=== PATIENT | female | born 1985 | race Caucasian/White ===

== ENCOUNTER 2022-04-05 08:16 | Outpatient (CLI) | payer OTHER, SELFPAY ==
[2022-04-05 17:24] LABS: Amphetamine Screen Urine Negative (Negative); Barbiturate Screen Urine Negative (Negative); Benzodiazepines Screen Urine Negative (Negative); Cocaine Screen Urine Negative (Negative); Methadone Screen Urine Negative (Negative); Methamphetamines Screen Urine Negative (Negative); Opiate Screen Urine Negative (Negative); Oxycodone Screen Urine Negative (Negative); Phencyclidine Screen Urine Negative (Negative); Tricyclic Antidepressant Urine Negative (Negative)
[2022-04-05 18:26] LABS: Cannabinoid Screen Urine POSITIVE (Negative)
[2022-04-08 02:21] LABS: Rapid Plasma Reagin (RPR) Non Reactive (Non Reactive)
== END 2022-04-05 08:17 | disposition home or self-care (01) ==
LOC: NFLDREF 13:57
PROVIDERS: PCP Family Medicine; Visit Provider Advanced Practice Midwife
DX: Z34.93 Encounter for supervision of normal pregnancy, unspecified, third trimester (principal); Z3A.30 30 weeks gestation of pregnancy
CPT/HCPCS: 80306; 86592

== ENCOUNTER 2022-04-05 14:59 | Outpatient (CLI) | payer OTHER, SELFPAY ==
--- NOTE | 2022-04-05 15:00 | CRLHL7_ITS ---
For Patients: As a result of the Cures Act, medical imaging exams and procedure reports are released immediately into your electronic medical record. You may view this report before your referring provider. If you have questions, please contact your health care provider. INDICATION: Third trimester scan, evaluate growth. COMPARISON: 01/22/2022 TECHNIQUE: Real time zamora scale imaging of the fetus was performed as well as color Doppler and spectral Doppler analysis of the umbilical artery. FINDINGS: Sonographic imaging demonstrates a single living intrauterine gestation. Fetus demonstrates a regular cardiac rate of 135 beats per minute. Fetus has a vertex position. The placenta lies anteriorly without evidence of placenta previa. Amniotic fluid volume appears normal and there is a single deepest vertical pocket: 5.2 cm. The estimated weight is 1572gm which lies at the 37th %. On the prior OB ultrasound exam dated 01/22/2022 the estimated weight was at the 38th%. BPD 46th percentile. HC 14th percentile. AC 67th percentile. FL 10th percentile. The HC/AC ratio measures 1.03 range (0.97-1.18). There is adequate diastolic blood flow within the umbilical artery. The S/D ratio measures 3.8. IMPRESSION: Sonographic gestational age 30 weeks 3 days and sonographic due date of 06/11/2022. Good correlation with dates. Normal interval growth. Estimated weight 37th percentile. Abdominal circumference 67th percentile. Dictated by Trevor Lu MD @ 04/06/2022 12:31:40 PM (Electronically Signed)
== END 2022-04-05 15:00 | disposition home or self-care (01) ==
LOC: US 14:59
PROVIDERS: PCP Family Medicine; Visit Provider Advanced Practice Midwife
DX: Z34.93 Encounter for supervision of normal pregnancy, unspecified, third trimester (principal); Z3A.30 30 weeks gestation of pregnancy
CPT/HCPCS: 76816; 76820

== ENCOUNTER 2022-05-18 16:22 | Outpatient (CLI) | payer OTHER, SELFPAY ==
[2022-05-19 14:53] LABS: Strep B DNA Probe NEGATIVE (Negative)
[2022-05-20 11:30] LABS: Strep B Pen/Amox Allergy No
== END 2022-05-18 16:23 | disposition home or self-care (01) ==
LOC: NFLDREF 16:22
PROVIDERS: PCP Family Medicine; Visit Provider Advanced Practice Midwife
DX: Z34.93 Encounter for supervision of normal pregnancy, unspecified, third trimester (principal); Z3A.36 36 weeks gestation of pregnancy
CPT/HCPCS: 87081; 87653

== ENCOUNTER 2022-05-27 08:07 | Outpatient (CLI) | payer OTHER, SELFPAY ==
--- NOTE | 2022-05-27 08:15 | CRLHL7_ITS ---
For Patients: As a result of the Century Cures Act, medical imaging exams and procedure reports are released immediately into your electronic medical record. You may view this report before your referring provider. If you have questions, please contact your health care provider. INDICATION: HX IUGR TECHNIQUE: Real time zamora scale imaging of the fetus was performed as well as color Doppler and spectral Doppler analysis of the umbilical artery. COMPARISON: 04/05/2022 FINDINGS: Sonographic imaging demonstrates a single living intrauterine gestation. Fetus demonstrates a regular cardiac rate of 163 beats per minute. Fetus has a vertex position. The placenta lies anteriorly. Amniotic fluid volume appears lower limits of normal and there is a single deepest pocket of 3.9 cm. GERARD 8.5 cm. The estimated weight is 2767gm which lies at the 14th %. On the prior OB ultrasound dated 04/05/2022 the estimated weight was at the 37th percentile. There is adequate diastolic blood flow within the umbilical artery. The S/D ratio measures 2.6. BPD 48th percentile. HC 5th percentile. Abdominal circumference 8th percentile. FL 11th percentile. The fetus was active. Absent breathing movements. There was normal flexion and extension of the trunk and extremities. IMPRESSION: Biophysical profile 08/26. Sonographic gestational age 36 weeks 1 day and sonographic due date of 06/23/2022. Sonographic age 12 days behind the clinical age. Estimated weight 14th percentile. Abdominal circumference 8th percentile. Head circumference 5th percentile. Normal UA Doppler. Dictated by Trevor Lu MD @ 05/27/2022 10:05:42 AM (Electronically Signed)
== END 2022-05-27 08:08 | disposition home or self-care (01) ==
PROVIDERS: PCP Family Medicine; Visit Provider Advanced Practice Midwife
DX: Z34.93 Encounter for supervision of normal pregnancy, unspecified, third trimester (principal); Z87.59 Personal history of other complications of pregnancy, childbirth and the puerperium; Z3A.36 36 weeks gestation of pregnancy
CPT/HCPCS: 76816; 76819; 76820

== ENCOUNTER 2022-05-31 06:47 | Inpatient (IN) | payer OTHER, SELFPAY ==
[2022-05-31] VITALS (33 sets, daily range): BP systolic 121–191; BP diastolic 60–93; PULSE 56–76; RESP 16–18; TEMP 36.6–37.1; O2SAT 98–100; BMI 32.9
--- NOTE | 2022-05-31 07:46 | W.PM.LDBA ---
Subjective History of Present Illness Date Seen: 05/31/22 Narrative: Patient is being admitted to Labor and Delivery for induction for IUGR. She is a 36 year old at 38.3 weeks gestation. Her full history and physical was done 05/27/22 by Marc Anne CNM. Please see this for details. Transferred care at 27.4 weeks 1. Blood Type A Rh negative 28 weeks Rhogam: received 03/16 Rhogam pp 2. THC use for insomnia and PTSD. 04/05/2021: THC positive 3. Smoker-actively working on cutting back. Encouraged Vit C. 4. Hx IOL for IUGR with a vacuum. EFW 37% at 30 weeks 5. Hx. mild PreE in in 2020. 6. HPV in 2019. Negative in 2019 and 2021. 7. IUGR at 37.6 weeks. EFW 14%, 6 lb 2 oz. AC 7.5%. -IOL between 38-39 weeks. Scheduled 05/31 per pt request. OB - Problem Based A/P Additional Plan (1) Encounter for induction of labor: Status: Acute (2) IUGR (intrauterine growth restriction): Status: Acute (3) 38 weeks gestation of : Status: Acute (4) Rh negative status during : Status: Acute Plan at 38.2 weeks gestation? GBS negative? IUGR? IOL? ?? PLAN:? 1. Reviewed risks and benefits of IOL with pitocin vs cytotec. Pt prefers cytotec. Pitocin to follow if needed.? 2. Candidate for analgesia of choice. Planning unmedicated .?? 3. Anticipate ? 4.. Expectant management at this time.? 5. Continuous monitoring for IUGR 6. IV PRN, not required right now. Consider placement if she is considering an epidural. Delivery/Labor/Induction Plan Plan: induction Induction method: per misoprostol protocol OB Result Labs Labs: OB transfer Labs:??? Blood type: A-, antibody screen negative.??? Hgb (10/15/21): 13.0??? Platelets (10/15/21): 230??? Rubella: Immune??? RPR: non-reactive??? HBsAg: negative?? Hep C: negative? HIV: negative??? GC/Chlamydia: negative/negative??? Pap (8/30/22): negative??? Genetic screening: none? IMAGING:??? 1st trimester: 10.5 weeks, FHR 163??? Anatomy scan: 01/24-FHR 149, anterior placenta, SDP 4.0 cord S/D 3.5, EFW 38%, facial structures and posterior fossa not well visualized, normal otherwise. 01/27-FHR 146, SDP 6.1, facial and brain structures visualized and normal, cord S/D 5.7 (up from 3.5)-follow up recommended ??? Labs Blood Type: A (-) negative Rubella: immune RPR/VDLR: nonreactive GBS Status: negative HBsAG: negative OB Exam Physical Exam Vital signs: Temp Pulse Resp BP Pulse Ox 98.7 F 67 18 136/72 98 05/31/22 07:05/31/22 07:23 05/31/22 07:05/31/22 07:05/31/22 07:24 Detailed Labor and Delivery Exam Patient Gravid: Yes Dilation (cm): 1 Effacement (%): 70 Cervix position: posterior Consistency: medium Contraction Frequency: irritability Fetus (Single) Station: 0 Amniotic Membrane Status: intact Heart Rate Baseline: 135 Monitor Accelerations: Present Monitor Decelerations: None Bench Press Operator Variability: Moderate (6-25)
[2022-05-31] MEDS: miSOPROStoL 25 MCG/0.25 TABLET VAGINAL ×2 (08:05→11:00)
[2022-05-31 08:06] LABS: Amphetamine Screen Urine Negative (Negative); Barbiturate Screen Urine Negative (Negative); Benzodiazepines Screen Urine Negative (Negative); Cocaine Screen Urine Negative (Negative); Methadone Screen Urine Negative (Negative); Methamphetamines Screen Urine Negative (Negative); Opiate Screen Urine Negative (Negative); Oxycodone Screen Urine Negative (Negative); Phencyclidine Screen Urine Negative (Negative); Tricyclic Antidepressant Urine Negative (Negative)
[2022-05-31 08:15] LABS: Cannabinoid Screen Urine POSITIVE (Negative)
[2022-05-31 08:33] LABS: SARS PCR* Negative SARS-CoV-2 (Negative)
[2022-05-31 08:40] LABS: Basophils Percent Auto 0.1 % (0.0-3.0); Eosinophils Percent Auto 0.8 % (0.0-7.0); Hematocrit 34.7 % (33.0-51.0); Hemoglobin* 11.7 gm/dL (12.0-16.0); Immature Granulocytes Pct Auto 1.2 %; Lymphocytes Percent Auto 18.2 % (20-44); Mean Corpuscular HGB Conc 34 gm/dL (32-36); Mean Corpuscular Hemoglobin 29 pg (26-34); Mean Corpuscular Volume 87 fL (80-100); Monocytes Percent Auto 4.9 % (0.0-11.0); Neutrophils Percent Auto 74.8 % (42.0-72.0); Platelet Count* 192 K/uL (140-440); RDW Coefficient of Variation % 12.4 % (11.5-15.5); Red Blood Count 4.01 m/uL (4.00-5.20); White Blood Count* 11.51 K/uL (4.50-11.00)
[2022-05-31 08:44] LABS: Slide Review Reflex No
--- NOTE | 2022-05-31 14:32 | P.OBPN_ITS ---
Subjective Date Seen: 05/31/22 Narrative: Maryam is resting comfortably in bed, sitting up eating. Does not have a support person at this time but expects one around 1500. Denies feeling contractions with the exception of one contraction since the start of Cytotec induction. Last exam was 3 cm, 90% and 0 station per RN. Discussed plan of care going forward and recommended with her history of fast labor, that we start Pitocin 4 hours from the last dose of Cytotec. Patient agrees to the plan. Objective Vital Signs: Last Vital Signs Temp 98.1 F 05/31/22 10:52 Pulse 71 05/31/22 10:52 Resp 18 05/31/22 10:52 BP 130/60 05/31/22 10:52 Pulse Ox 98 05/31/22 07:24 Pelvic Exam Dilation (cm): 3 Effacement (%): 90 Station: 0 Contractions Monitor mode: External Contraction Frequency: 2-4 Contraction pattern: Irregular Contraction intensity: Mild Assessment Assessment: induction ongoing Station: 0 Status: Category ll Heart Rate Baseline: 125 Detention Variability: Moderate (6-25) Monitor Accelerations: Present Monitor Decelerations: None Plan Plan: PLAN:? 1. Routine intrapartum cares as ordered. Start Pitocin when 4 hours have elapsed since last Cytotec dose. 2. Monitoring per policy, continuous 3. Patient is a candidate for analgesia of choice. May have when desires. 4. Patient encouraged to reposition to promote physiologic labor and .?Attempt positions to encourage rotation. 5. Anticipate . 6. Place IV for pitocin administration. AIMEE Still with supervision of Oneida Camarillo CNM
[2022-05-31] MEDS: OXYTOCIN 30 unit/500 ML in NS 30 UNIT/500 ML BAG IVPB (15:05)
[2022-05-31] MEDS: LACTATED RINGERS 1000 ML 1,000 ML 125 ML IV (15:05)
[2022-05-31] MEDS: ROPIVACAINE 0.2% 100 ml 100 ML 12 MG EPIDURAL (19:20)
[2022-05-31] MEDS: CALCIUM CARBONATE 500 MG CHEW PO (19:49)
[2022-05-31] MEDS: ONDANSETRON 2 MG/ML inj 4 MG IV (19:54)
[2022-05-31] MEDS: LABETALOL HCL 5 MG/ML inj IVP ×2 (19:59→20:57)
[2022-05-31 20:11] LABS: Hematocrit 39.4 % (33.0-51.0); Hemoglobin* 13.2 gm/dL (12.0-16.0); Mean Corpuscular HGB Conc 34 gm/dL (32-36); Mean Corpuscular Hemoglobin 29 pg (26-34); Mean Corpuscular Volume 87 fL (80-100); Platelet Count* 207 K/uL (140-440); Red Blood Count 4.53 m/uL (4.00-5.20); Slide Review Reflex No; White Blood Count* 17.13 K/uL (4.50-11.00)
[2022-05-31 20:31] LABS: Alanine Aminotransferase* 22 U/L (4-35); Aspartate Amino Transferase* 27 U/L (12-35); Blood Urea Nitrogen* 14 mg/dL (5-24); Creatinine* 0.9 mg/dL (0.5-1.5); Est. Creatinine Clearance* 79.25; Estimated Glomerular Filt Rate 86 ml/min
[2022-05-31 20:33] LABS: Fibrinogen* 460 mg/dL (200-450); Prothrombin Time 12.7 Seconds
--- NOTE | 2022-05-31 21:25 | W.PM.OBVAGDE ---
OB Procedure Vag Delivery Mother Details Mother Details: Maryam is a 36 year-old, 4, now Para 2, admitted on 05/31/22 at 38.4 Days gestation for induction for IUGR.? Cervical exam on admission was 1 cm/30 % effaced with membranes intact in vertex presentation. heart rate demonstrated baseline 135 bpm with moderate variability, + accelerations, - decelerations; a category 1 tracing.?She received cytotec x2 followed by pitocin for her IOL. SROM occurred at 1935 with clear fluid.?She received an epidural for pain control and then progressed rapidly to complete. Just prior to delivery she developed elevated blood pressures in the severe range. She was treated with IV medication and started on Magnesium for prevention of seizures. Labs pending. Placenta was irregularly shaped and had a marginal cord insertion with calcifications noted. It was sent to pathology. : 4 Para: 2 Weeks Gestation: 38.3 Admission Date: 05/31/22 Additional Details Amniotic Membrane Status: SROM Amniotic Membrane Rupture Date: 05/31/22 Amniotic Membrane Rupture Time: 19:35 Amniotic Membrane Fluid Description: Clear Analgesia/Anesthesia Type: Epidural Waterbirth: No Pitcoin: Yes Intrapartal Events: Labor Induction Induction Method: per misoprostol protocol and per pitocin protocol Labor Onset: 18:04 Complete: 20:07 Pushin:11 Heart: heart tones during second stage were 130's moderate variability with variable decelerations. Delivery Details Delivery Date: 05/31/22 Delivery Time: 20:34 Route of delivery: Infant Gender: Male Viability: Alive; Heart Rate Present Position at Delivery: OA Delivery Details: Delivered via spontaneous vaginal delivery. Infant was placed on maternal abdomen.? Cord was clamped and cut after a 5 minute delay. Nose and mouth were bulb suctioned.? weight pending. 1 Minute Interval Total Score: 8 5 Minute Interval Total Score: 9 Additional Details Shoulder Dystocia: No Placenta Delivery Time: 20:56 Placental Delivery Description: Spontaneous Procedure Done: Global Blood Loss: 150 Laceration: Perineal - 1st Degree (not repaired) Episiotomy Description: None Blood Loss Measurement Type: QBL Bakri Used: No Sponge/Need Count Correct: Yes Cord Vessel Description: 3 Vessels Event Summary Status: Mother and infant were stable after delivery. Disposition: floor
--- NOTE | 2022-05-31 21:34 | PM.OBCN1 ---
OB - CN: HPI Date of Consult Time Seen by Provider: 21:34 Date Seen: 05/31/22 Consult date: 05/31/22 Requesting Physician: Oneida Camarillo CNM Primary Care Provider: Eliza Cho MD Consult Narrative Narrative: Maryam is a 36 year old G 4 P 1021 now 2 at 38w3d weeks gestation that was admitted to the [facility] on 05/31/22 for induction of labor due to IUGR. She developed hypertension intrapartum and severe preeclampsia range blood pressure in the active phase of labor. She is currently on magnesium for seizure prophylaxis. She has received IV labetalol to control blood pressure. I will be starting nifedipine ER 30 mg p.o. daily this evening. Will increase this dose and add p.o. labetalol needed. Has received IV labetalol. Another set of preeclampsia labs as ordered for tomorrow morning. Labs on 05/31/2022 at approximately 8:00 p.m.: Hemoglobin 13.2, platelets 207, INR 0.9, fibrinogen 460 (H: normal for ), AST 27, ALT 22, BUN 14, creatinine 0.9 (high for ). History History 4 Elective abortions 2 Para 1 Spontaneous abortions Hx # Term Pregnancies Ectopic pregnancies Hx # Pregnancies Multiple births Number of Living Children 1 Past Pregnancies Del. Date GA/Weeks Outcome Route wt Inf Gender Labor Lgth Anesthesia Location Provider Compli 10/04/19 38 live - full term vaginal delivery 4 lb 14 oz Female 4 hrs none Bernie Delivery Date: 10/04/19 Last Updated by: Oneida Camarillo CNM placenta had calcium deposits in it; ?IUGR Labs Blood type: A (-) negative Rubella: immune RPR/VDLR: nonreactive GBS status: negative HBsAG: negative OB Labs: Lab Assessment Start: 05/31/22 07:11 Freq: ONCE Status: Complete Protocol: PC.OBGBS Activity Type Activity Date Activity User E-sign Co-sign Detail Recorded Client Recorded Date Recorded By Document 05/31/22 07:55 GOAquiles [id number] 05/31/22 07:56 AMINA 05/31/22 07:55 Lab Assessment GBS Negative Previous with Invasive GBS No Does Patient Meet Criteria No No Treatment Needed OK Maternal Blood Type A Maternal RH Factor Negative Evaluate Maternal Rubella Immune Status Immune Hepatitis B Surface Antigen Negative Maternal HIV Status Negative Maternal Syphillis (RPR) Status Negative Are Labs Available Yes [facility] Medical History (Updated 05/31/22 @ 21:59 by Ese Perez MD) ASCUS (atypical squamous cells of undetermined significance) on gynecologic Papanicolaou smear complicating , antepartum History of pre-eclampsia History of prior with IUGR Severe preeclampsia Surgical History (Updated 03/18/22 @ 13:09 by Onedia Camarillo CNM) History of nasal surgery History of placement of ear tubes History of vacuum extraction assisted delivery Social History (Updated 05/27/22 @ 17:52 by Rae Anne CNM) Narrative: SOCIAL??? Education: 2 year degree??? 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 Partner: James - receptionist airline lounge at a [employer] Lives with: partner, daughter?? Pets: dog Abuse: Denies past/present? Special Diet: Denies??? Ok with a blood transfusion: yes?? Culture or buddhist beliefs: denies? RISK FACTORS??? Exercise Times/wk: walking 3-4 days per week?? Depression/Anxiety: denies??? Seat Belt Use: Routinely Smoking: smokes a pack in 4-5 days. Is working on cutting back. Has decrease some already.?? Alcohol/day: Denies while ??? Caffeine: 1 coffee a day??? Drug Use: Uses THC use most days at bedtime for sleep and PTSD?? MRSA: Denies??? Highest level of school completed/degree received: Associate degree: occupational, technical, vocational program Smoking Status: Current every day smoker What tobacco products do you use: cigarettes Years smoked: 20 Smoking quit date/years: <= 15 years ago Do you use any of these nicotine containing products: None Non-prescribed substance use: marijuana (any form) Caffeine: Yes Meds Home Medications and Allergies Home Medications Medication Instructions Recorded Confirmed Type omeprazole 20 mg capsule,delayed 20 mg PO QDAY PRN 03/16/22 05/31/22 History release Allergies Allergy/AdvReac Type Severity Reaction Status Date / Time sulfamethoxazole Allergy Mild Rash Verified 05/31/22 07:58 [From Bactrim] trimethoprim [From Bactrim] Allergy Mild Rash Verified 05/31/22 07:58 OB - H&P: Exam Physical Exam: Vital signs: Temp Pulse Resp BP Pulse Ox 98.4 F 70 16 164/78 H 100 05/31/22 17:20 05/31/22 21:24 05/31/22 17:20 05/31/22 21:24 05/31/22 19:15 Narrative: GENERAL APPEARANCE: Pleasant, , well-groomed woman in no acute distress. VITAL SIGNS: See EMR HEAD: Normocephalic, atraumatic. THYROID: no masses, nodularity, tenderness or enlargement. LUNGS: Clear to auscultation bilaterally without wheezes, rales or rhonchi. HEART: Regular rate and rhythm with normal S1 and S2. No gallop, rub or murmur. ABDOMEN: Fundus firm 1 cm below umbilicus Soft, nontender, nondistended, with normal bowels sounds throughout. EXTREMITIES: No cyanosis, clubbing, or edema. [+/-] varicosities. NEUROLOGIC: Normal gait and balance. Normal deep tendon reflexes at bilateral patella 2+/2, equal without clonus. PSYCHIATRIC: alert and oriented x3. Normal speech pattern, eye contact and affect. SKIN: Warm, dry, and well perfused. Good turgor. No lesions, nodules or rashes. OB - Results Labs Labs: Short CBC 05/31/22 05/31/22 Range/Units 08:22 20:03 WBC 11.51 H 17.13 H (4.50-11.00) K/uL Hgb 11.7 L 13.2 (12.0-16.0) gm/dL Hct 34.7 39.4 (33.0-51.0) % Plt Count 192 207 (140-440) K/uL BMP 05/31/22 20:03 BUN 14 Creatinine 0.9 Liver Function 05/31/22 Range/Units 20:03 AST 27 (12-35) U/L ALT 22 (4-35) U/L OB - CN: A/P Assessment and Plan (1) Encounter for induction of labor: Status: Acute (2) IUGR (intrauterine growth restriction): Status: Acute (3) 38 weeks gestation of : Status: Acute (4) Rh negative status during : Status: Acute (5) Severe preeclampsia: Start date: 05/31/22 Start time: 19:00 Status: Acute Assessment and Plan: 1. Continue magnesium sulfate until 24 hours . 2. Repeat preeclampsia labs morning: Ordered. 3. Start nifedipine ER 30 mg p.o. daily this evening. 4. Add p.o. labetalol as needed.
[2022-06-01] VITALS (9 sets, daily range): BP systolic 133–155; BP diastolic 71–92; PULSE 66–82; RESP 15–20; TEMP 36.4–36.8; O2SAT 96–100
[2022-06-01] MEDS: LACTATED RINGERS 1000 ML 1,000 ML 75 ML IV (00:47)
[2022-06-01] MEDS: ACETAMINOPHEN 500 MG TABLET 1000 MG PO ×3 (01:34→15:27)
[2022-06-01] MEDS: IBUPROFEN 600 MG TABLET PO ×2 (04:20→12:09)
[2022-06-01 07:09] LABS: Hematocrit 32.6 % (33.0-51.0); Hemoglobin* 11.1 gm/dL (12.0-16.0); Mean Corpuscular HGB Conc 34 gm/dL (32-36); Mean Corpuscular Hemoglobin 29 pg (26-34); Mean Corpuscular Volume 87 fL (80-100); Platelet Count* 163 K/uL (140-440); Red Blood Count 3.77 m/uL (4.00-5.20); White Blood Count* 17.45 K/uL (4.50-11.00)
[2022-06-01 07:28] LABS: Slide Review Reflex No
[2022-06-01 07:31] LABS: Creatinine* 0.7 mg/dL (0.5-1.5); Estimated Glomerular Filt Rate 116 ml/min
[2022-06-01 07:32] LABS: Alanine Aminotransferase* 19 U/L (4-35); Aspartate Amino Transferase* 34 U/L (12-35); Blood Urea Nitrogen* 11 mg/dL (5-24)
--- NOTE | 2022-06-01 09:46 | P.OBPN_ITS ---
OB - PN:Subj Subjective Date Seen: 06/01/22 Interval history: The patient feels well.? The pain is well controlled with current medications.? She has no new complaints.? Urinary output is adequate and she is voiding without difficulty.? Has a good appetite, is tolerating a general diet, is passing flatus.? Has scant amount of rubra lochia.? She is ambulating well. She is and reports it is going well.?Blood pressures have remained elevated, not on severity range. Systolics between 140-155, diastolics from 71- 90. Denies headaches, visual changes or pain in her upper abdomen. Patient wants to d/c magnesium infusion after 12 hours and if baby is able to go home today she would like to go home AMA in the afternoon. Patient comments OB post-: no complaints, pain well controlled and tolerating diet [place] infant status: [place] feeding status: exclusively OB - PN: Obj Exam Physical Exam: Vital signs: Temp Pulse Resp BP Pulse Ox O2 Del Method 97.7 F 67 18 133/82 98 06/01/22 07:58 06/01/22 07:58 06/01/22 07:58 06/01/22 07:58 06/01/22 07:58 06/01/22 07:58 Narrative: VITAL SIGNS: As noted above. GENERAL APPEARANCE: Alert, cooperative female in no acute distress. MOOD & AFFECT: Normal. Chest: Cleat to auscultation x2, regular, rate and rhythm of the heart ABDOMEN: Soft and appropriately tender : Normal pp lochia. EXTREMITIES: Nonedematous. Well perfused. Nontender. OB - PN: Obj Data Labs Labs: Laboratory Results - last 24 hr 05/31/22 05/31/22 05/31/22 20:03 20:03 20:03 WBC 17.13 H RBC 4.53 Hgb 13.2 Hct 39.4 MCV 87 MCH 29 MCHC 34 Plt Count 207 INR 0.90 L Fibrinogen 460 H BUN 14 Creatinine 0.9 Estimated Creat Clear 79.25 Estimated GFR 86 AST 27 ALT 22 06/01/22 06/01/22 06:35 06:35 WBC 17.45 H RBC 3.77 L Hgb 11.1 L Hct 32.6 L MCV 87 MCH 29 MCHC 34 Plt Count 163 INR Fibrinogen BUN 11 Creatinine 0.7 Estimated Creat Clear 101.90 Estimated GFR 116 AST 34 ALT 19 OB - PN: A/P Vaginal Delivery Assessment and Plan (1) Encounter for induction of labor: Status: Acute (2) IUGR (intrauterine growth restriction): Status: Acute (3) 38 weeks gestation of : Status: Acute (4) Rh negative status during : Status: Acute (5) Severe preeclampsia: Status: Acute Assessment and Plan: 1. Continue magnesium sulfate infusion to complete 24 hours , lab work completed this morning found normal with normal creatinine. Strict in and outs normal. As long as patient continues without severely elevated blood pressures and normal urine output, will not plan to repeat labs until tomorrow morning. Discussed recommendation to continue monitoring at least an additional 24 hours after magnesium sulfate discontinuation. If patient decides that she would like to go home prior to this time, will have to be against medical advice. 2. Continue to monitor vital signs closely. 3. Continue nifedipine 30 mg daily, continue to monitor blood pressures to assess the need to alter dose. Plan Plan: routine care
[2022-06-01] MEDS: NIFEdipine 30 MG TAB.ER.24 PO (12:04)
--- NOTE | 2022-06-01 15:29 | PC.SOCIAL ---
Child Protection report made to Terrie Pisano at [facility] at [phone], fax# [phone]. Buyer Intern is aware pt. has a medical marijuana card. Pt. is leaving AMA as well.
--- NOTE | 2022-06-01 21:05 | PM.OBDSVD1 ---
DS: Providers Provider Date Seen: 06/01/22 Date of admission: 05/31/22 06:47 Primary care physician: Eliza Cho MD Admitting Clinician: Oneida Camarillo CNM Consults: 05/31/22 07:27 Consult to Sorting Machine Attendant [CONS] Routine Comment: Reason for Consult:: Substance Abuse Screening 05/31/22 07:45 Consult to Sorting Machine Attendant [CONS] Routine Comment: Reason for Consult:: Substance Abuse Screening Attending Physician on discharge: Preethi Hercules MD Date of Discharge: 06/01/22 DS: Diagnosis Discharge Diagnosis (1) Left against medical advice: Status: Acute (2) Severe preeclampsia: Status: Acute Exam Const: Vital Signs, click to edit/add: Vital Signs - 24 hr 05/31/22 21:14 05/31/22 21:24 05/31/22 21:40 Temperature Pulse Rate 69 70 69 Pulse Rate [Pulse Oximeter] Respiratory Rate Blood Pressure 155/80 H 164/78 H 132/65 Blood Pressure [Ri ght Arm] Pulse Oximetry Oxygen Delivery Me thod 05/31/22 21:46 05/31/22 21:56 05/31/22 22:34 Temperature Pulse Rate 68 72 71 Pulse Rate [Pulse Oximeter] Respiratory Rate Blood Pressure 154/70 H 121/81 141/72 H Blood Pressure [Ri ght Arm] Pulse Oximetry Oxygen Delivery Me thod 05/31/22 22:44 05/31/22 23:05 06/01/22 00:09 Temperature Pulse Rate 76 69 69 Pulse Rate [Pulse Oximeter] Respiratory Rate Blood Pressure 160/79 H 141/65 H 140/76 H Blood Pressure [Ri ght Arm] Pulse Oximetry Oxygen Delivery Me thod 06/01/22 01:27 06/01/22 02:15 06/01/22 00:10 Temperature 97.6 F 97.6 F 97.5 F L Pulse Rate Pulse Rate [Pulse Oximeter] 72 70 66 Respiratory Rate 16 16 15 Blood Pressure Blood Pressure [Ri ght Arm] 155/90 H 143/71 H 140/76 H Pulse Oximetry 100 96 99 Oxygen Delivery Me thod Room Air Room Air Room Air 06/01/22 04:03 06/01/22 07:58 06/01/22 12:00 Temperature 98.1 F 97.7 F 98.2 F Pulse Rate Pulse Rate [Pulse Oximeter] 70 67 70 Respiratory Rate 20 18 18 Blood Pressure Blood Pressure [Ri ght Arm] 142/72 H 133/82 142/92 H Pulse Oximetry 97 98 98 Oxygen Delivery Me thod Room Air Room Air Room Air 06/01/22 16:45 06/01/22 20:46 Temperature 97.9 F 97.9 F Pulse Rate Pulse Rate [Pulse Oximeter] 82 69 Respiratory Rate 16 18 Blood Pressure Blood Pressure [Ri ght Arm] 142/75 H 134/76 Pulse Oximetry 98 97 Oxygen Delivery Me thod Room Air Room Air OB - DS: Summary Hospital Course Hospital Course: The patient is a 36 year old at 38 4/7 weeks gestation that was admitted to the Center on 05/31/22 for IOL due to IUGR and was diagnosed with preeclampsia with severe features. She had an uncomplicated vaginal delivery. She delivered a viable male . She is breast feeding. Patient received magnesium sulfate infusion but refused to continue infusion after about 12 hours of infusion. Blood pressures have remained elevated but not on severity range, she was started on nifedipine 30mg daily this morning. Patient is leaving AMA at this moment. Refuses inpatient observation as recommended to at least complete 24 hours after magnesium sulfate infusion to continue to monitor blood pressures and repeat preeclampsia labs. Time spent discussing smoking cessation with patient: 3 to 10 minutes Peripartum Data delivery method: Vaginal Laceration description: None [place] Infant Gender: Male Status at Discharge Functional status at discharge: independent ambulation Time Spent with Patient Time attestation: Total time spent providing and/or coordinating discharge services: Discharge Plan Discharge Disposition: Left Against Medical Advice Date of Admission: 05/31/22 06:47 Attending Provider on Discharge: Preethi Hercules Primary Care Provider: Eliza Cho Condition: Unchanged Discharge Medications: New nifedipine 30 mg Tablet Extended Release 24hr 30 mg PO DAILY Qty: 30 0RF Continued omeprazole 20 mg capsule,delayed release(DR/EC) 20 mg PO QDAY PRN Label Comments: sometimes more than once a day prenat.vits,jakub,[id number] Tablet 1 tab PO QDAY Qty: 90 1RF Discharge Orders: Discharge Order (Routine); Ordered 06/01/22 Ordered By: Preethi Hercules AMA Form Signed: Yes Discharge Comments: Monitor blood pressures at home at least once daily, follow up in clinic this week for a blood pressure check. Notify clinic if blood pressures are more than 150 systolics, 100s diastolics, persistent headaches, visual changes, pain in the upper abdomen.
--- NOTE | 2022-06-11 10:42 | PM.ANBPRC ---
[facility] Medical History (Updated 06/01/22 @ 21:06 by Preethi Hercules MD) ASCUS (atypical squamous cells of undetermined significance) on gynecologic Papanicolaou smear complicating , antepartum History of pre-eclampsia ?Z87.59 - Personal history of other complications of , childbirth and the puerperium (ICD-10) History of prior with IUGR ?Z87.59 - Personal history of other complications of , childbirth and the puerperium (ICD-10) (normal spontaneous vaginal delivery) (05/31/22) ?O80 - Encounter for full-term uncomplicated delivery (ICD-10) Severe preeclampsia (05/31/22) ?O14.10 - Severe pre-eclampsia, unspecified trimester (ICD-10) Surgical History (Updated 03/18/22 @ 13:09 by Oneida Camarillo CNM) History of nasal surgery ?Z98.890 - Other specified postprocedural states (ICD-10) History of placement of ear tubes ?Z96.22 - Myringotomy tube(s) status (ICD-10) History of vacuum extraction assisted delivery ?Z87.59 - Personal history of other complications of , childbirth and the puerperium (ICD-10) Social History (Updated 05/27/22 @ 17:52 by Rae Anne CNM) Narrative: SOCIAL??? Education: 2 year degree??? 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 Partner: James - long lines operator at [employer] Lives with: partner, daughter?? Pets: dog Abuse: Denies past/present? Special Diet: Denies??? Ok with a blood transfusion: yes?? Culture or latter day beliefs: denies? RISK FACTORS??? Exercise Times/wk: walking 3-4 days per week?? Depression/Anxiety: denies??? Seat Belt Use: Routinely Smoking: smokes a pack in 4-5 days. Is working on cutting back. Has decrease some already.?? Alcohol/day: Denies while ??? Caffeine: 1 coffee a day??? Drug Use: Uses THC use most days at bedtime for sleep and PTSD?? MRSA: Denies??? Highest level of school completed/degree received: Associate degree: occupational, technical, vocational program Smoking Status: Current every day smoker What tobacco products do you use: cigarettes Years smoked: 20 Smoking quit date/years: <= 15 years ago Do you use any of these nicotine containing products: None Non-prescribed substance use: marijuana (any form) Caffeine: Yes Meds Home Medications and Allergies Home Medications Medication Instructions Recorded Confirmed Type omeprazole 20 mg capsule,delayed 20 mg PO QDAY PRN 03/16/22 05/31/22 History release Allergies Allergy/AdvReac Type Severity Reaction Status Date / Time sulfamethoxazole Allergy Mild Rash Verified 05/31/22 07:58 [From Bactrim] trimethoprim [From Bactrim] Allergy Mild Rash Verified 05/31/22 07:58 Results Vital Signs Vital Signs: Last Vital Signs Temp 97.9 F 06/01/22 20:46 Pulse 69 06/01/22 20:46 Resp 18 06/01/22 20:46 BP 134/76 06/01/22 20:46 Pulse Ox 97 06/01/22 20:46 O2 Del Method Room Air 06/01/22 20:46 Weight: 86.772 kg Height: 165.1 cm Anesthesia Procedures Epidural Insertion Patient Location: OB Start Time: 18:30 Stop Time: 19:30 Start Date: 06/01/22 Stop Date: 06/01/22 Reason for Block: procedure for pain Patient Position: sitting Performed By: Keith Kenny Preanesthetic Checklist: IV checked, risks and benefits discussed, surgical consent, monitors and equipment checked, pre-op evaluation, timeout performed and anesthesia consent Prep: chlorhexidine gluconate Monitoring: blood pressure monitoring, continuous pulse oximetry and heart rate Approach: midline Vertebral Space: lumbar (1-5) Epidural Technique: AMARI saline Needle Type: Tuohy needle Injection Technique: continuous catheter Needle gauge: 17 Needle Length (cm): 10 cm Needle Insertion Depth (cm): 6 Catheter Gauge: 19 Catheter Type: multi-orifice Catheter at skin depth (cm): 12 Test Dose Result: negative and lidocaine 1.5% with epinephrine 1 to 200,000
== END 2022-06-01 21:53 | disposition left against medical advice (07) | DRG 560 ==
PROVIDERS: Obstetrics & Gynecology; Admitting Provider Advanced Practice Midwife; PCP Family Medicine; Visit Provider Advanced Practice Midwife
DX: O36.5930 Maternal care for other known or suspected poor fetal growth, third trimester, not applicable or unspecified (principal); O14.14 Severe pre-eclampsia complicating childbirth; Z53.29 Procedure and treatment not carried out because of patient's decision for other reasons; O26.893 Other specified pregnancy related conditions, third trimester; Z67.11 Type A blood, Rh negative; F12.90 Cannabis use, unspecified, uncomplicated; O99.344 Other mental disorders complicating childbirth; F43.10 Post-traumatic stress disorder, unspecified; G47.00 Insomnia, unspecified; F51.4 Sleep terrors [night terrors]; O70.0 First degree perineal laceration during delivery; O99.334 Smoking (tobacco) complicating childbirth; F17.210 Nicotine dependence, cigarettes, uncomplicated; Z37.0 Single live birth; Z3A.38 38 weeks gestation of pregnancy
CPT/HCPCS: 01967; 36415; 59200; 80306; 82565; 84450; 84460; 84520; 85025; 85027; 85384; 85610; 86850; 86870; 86880; 86900; 86901; 87635; 88307; A9270; J2370; J2405; J2795; J3475; J7120

== ENCOUNTER 2023-12-05 11:40 | Outpatient (CLI) | payer OTHER, SELFPAY | END 2023-12-05 11:41 | disposition home or self-care (01) | LOC: NFLDREF 12-08 11:25 | PROVIDERS: PCP Nurse Practitioner Family; Referring Provider Nurse Practitioner Family; Visit Provider Nurse Practitioner Family | DX: R21 Rash and other nonspecific skin eruption (principal) | CPT/HCPCS: 87081 ==

== ENCOUNTER 2025-01-08 11:00 | Outpatient (CLI) | payer OTHER, SELFPAY ==
[2025-01-09 22:49] LABS: HPV Source Vaginal
[2025-01-11 10:37] LABS: Pap Test Digital Imaging Done
== END 2025-01-08 11:01 | disposition home or self-care (01) ==
PROVIDERS: PCP Nurse Practitioner Family; Visit Provider Nurse Practitioner Family
DX: Z00.00 Encounter for general adult medical examination without abnormal findings (principal); Z12.4 Encounter for screening for malignant neoplasm of cervix
CPT/HCPCS: 87624; 87625; 88141; 88142; 88175

== ENCOUNTER 2025-01-15 12:50 | Outpatient (CLI) | payer OTHER, SELFPAY | END 2025-01-15 12:51 | disposition home or self-care (01) | LOC: NFLDREF 01-17 11:01 | PROVIDERS: PCP Nurse Practitioner Family; Referring Provider Nurse Practitioner Family; Visit Provider Obstetrics & Gynecology | DX: R33.9 Retention of urine, unspecified (principal) | CPT/HCPCS: 87086 ==